=== PATIENT | male | born 1945 | race Caucasian/White ===

== ENCOUNTER → 2021-08-29 | Outpatient (CLI) | payer MEDICARE, SELFPAY | END | disposition home or self-care (01) | LOC: LABSPEC 11:26 | PROVIDERS: Referring Provider Physician Assistant Medical; Visit Provider Physician Assistant Medical | DX: U07.1 COVID-19 (principal) | CPT/HCPCS: 87635; U0005; U0003 ==

== ENCOUNTER 2021-09-02 15:04 | Outpatient (CLI) | payer MEDICARE, SELFPAY ==
[2021-09-02] MEDS: 0.9% Saline Lock 10 ML Syringe IV (15:21)
[2021-09-02 15:26] VITALS: BP 146/75; PULSE 88; RESP 16; TEMP 37.1; O2SAT 97; BMI 19.8
[2021-09-02 16:03] VITALS: BP 116/70; PULSE 80; RESP 16; TEMP 36.9; O2SAT 97
[2021-09-02 16:53] VITALS: BP 129/75; PULSE 76; RESP 16; TEMP 36.9; O2SAT 97
== END 2021-09-02 17:03 | disposition home or self-care (01) ==
LOC: MS3OUT 15:04 → MS3 15:05
PROVIDERS: Referring Provider Nurse Practitioner Adult Health; Visit Provider Nurse Practitioner Adult Health
DX: Z23 Encounter for immunization (principal); U07.1 COVID-19
CPT/HCPCS: J7050; M0245; Q0245; A4216